=== PATIENT | female | born 1960 | race Caucasian/White ===

== ENCOUNTER → 2024-03-21 07:46 | Outpatient (REF) | payer BC, SELFPAY ==
[2024-03-21 10:26] LABS: ALT (SGPT) 21 U/L (0-35); AST (SGOT) 26 U/L (14-36); Albumin 4.7 g/dl (3.5-5.0); Alkaline Phosphatase 76 U/L (38-126); Blood Urea Nitrogen 15 mg/dl (7-17); Calcium 9.7 mg/dl (8.4-10.2); Carbon Dioxide 23 mmol/L (22-30); Chloride 104 mmol/L (98-107); Glucose 117 mg/dl (70-99); HDL Cholesterol 57 mg/dl; LDL Cholesterol, Calculated 70 mg/dl; Potassium 4.7 mmol/L (3.5-5.1); Sodium 139 mmol/L (135-145); Total Bilirubin 1.2 mg/dl (0.2-1.3); Total Cholesterol 180 mg/dl (50-199); Total Protein 7.6 g/dl (6.3-8.2); Triglyceride 266 mg/dl (10-149); Very Low Density Lipoprotein 53 mg/dl (0-30); eGFR > 60.00
[2024-03-21 10:32] LABS: Free T4 1.29 ng/dl (0.78-2.19)
[2024-03-21 10:46] LABS: TSH 2.28 uIU/ml (0.47-4.68)
[2024-03-21 10:55] LABS: Microalbumin, Random Urine < 0.6 mg/dl (0.6-1.7)
[2024-03-21 11:54] LABS: Glycohemoglobin (HgbA1c) 7.2 % (4.0-5.6)
== END ==
LOC: SDSPAT 07:46
PROVIDERS: ATTENDING PHYSICIAN Internal Medicine Endocrinology, Diabetes & Metabolism; FAMILY PHYSICIAN Internal Medicine Critical Care Medicine
DX: E03.9 Hypothyroidism, unspecified (principal); E11.9 Type 2 diabetes mellitus without complications
CPT/HCPCS: 36415; 80053; 80061; 82043; 82570; 83036; 84439; 84443

== ENCOUNTER → 2024-07-28 17:34 | Outpatient (REF) | payer BC, SELFPAY | LOC: CPAP 17:34 | PROVIDERS: ATTENDING PHYSICIAN Obstetrics & Gynecology | DX: Z01.419 Encounter for gynecological examination (general) (routine) without abnormal findings (principal); Z11.51 Encounter for screening for human papillomavirus (HPV) | CPT/HCPCS: 87624; G0123 ==

== ENCOUNTER → 2024-08-19 07:38 | Outpatient (REF) | payer BC, SELFPAY | LOC: WDC 07:38 | PROVIDERS: ATTENDING PHYSICIAN Obstetrics & Gynecology; FAMILY PHYSICIAN Internal Medicine Critical Care Medicine | DX: Z12.31 Encounter for screening mammogram for malignant neoplasm of breast (principal) | CPT/HCPCS: 77063; 77067 ==

== ENCOUNTER 2025-02-14 21:54 | Emergency (ER) | payer BC, SELFPAY ==
[2025-02-14 21:54] VITALS: BMI 34.8
[2025-02-14 21:55] VITALS: BP 165/90
--- NOTE | 2025-02-14 22:46 | ED.SKININJ ---
HPI-Injury
General
Chief Complaint: Skin Problem
Source: patient
Exam Limitations: none
Time Seen by Provider: 02/14/25 22:42
Nursing documentation reviewed up to this point in time: agreed with
History of Present Illness-Injury
Initial Injury comments:
64-year-old female with A-fib on aspirin only, HTN, HLD, hypothyroid, NIDDM presents for a laceration to the tip of her left middle finger from a mandolin 2-1/2 hours ago and she cannot get it to stop bleeding.
Past History
Past History
ED Past Medical History: Arrthythmia (History of atrial fibrillation, and SVT), HTN, Hypercholesterolemia, NIDDM and Hypothyroidism
ED Past Surgical History: Cardiac (Cardiac ablation), and Other (History of myomectomy, wisdom teeth surgery, Lasik surgery)
Social History
Tobacco: Non-smoker
Personal:
Living: with family
Employment: Employed
Review of Systems
Review of Systems
Allergies reviewed?: Yes
All Other Systems: ROS reviewed and negative except as documented in HPI and ROS
Skin: Reports other (Laceration fingertip)
Phy Exam
Physical Exam
Physical Exam:
PHYSICAL EXAMINATION:
General: no apparent distress, not acutely ill
Neuro: alert and oriented.
Psychiatric: well kept. interactive and cooperative
Musculoskeletal: Moves with ease
Skin: Warm, pink. There is a 4 mm round avulsion of the skin of the tip of the left middle finger that is slowly oozing blood
Course
Vital Signs
Initial and Last Documented VS:
Initial Vital Signs
Temp Pulse Resp BP Pulse Ox
98.3 F 67 18 165/90 98
02/14/25 21:55 02/14/25 21:55 02/14/25 21:55 02/14/25 21:55 02/14/25 21:55
Last Documented Vital Signs
Temp Pulse Resp BP Pulse Ox
98.3 F 67 18 165/90 98
02/14/25 21:55 02/14/25 21:55 02/14/25 21:55 02/14/25 21:55 02/14/25 21:55
MDM/Problems Addressed
MDM/Problems Addressed:
64-year-old female with A-fib on aspirin only, HTN, HLD, hypothyroid, NIDDM presents for a laceration to the tip of her left middle finger from a mandolin 2-1/2 hours ago and she cannot get it to stop bleeding.
The wound was cleansed with saline solution, Gelfoam and nonstick dressing applied, tube gauze applied with good hemostasis.
*Critical Care Note
Total Time (30-74mins, 75-104mins- exclusive of procedures): Not Applicable
ED Attending Note
-
Portions of this chart may have been created with voice recognition software.� Occasional wrong word or��sound alike� substitutions may have occurred due to the inherent limitations of voice recognition software.
Discharge Plan
Departure
Patient Disposition: Home (Routine Discharge)
Date of Disposition: 02/14/25
Time of Disposition: 22:48
Patient with high blood pressure during this ER visit?: No
Condition: Good
Discharge Problem:
Avulsion of skin of finger
Instructions: Wound Care (DC)
Prescriptions:
No Action
fluticasone propion-salmeterol [Advair Diskus] 1 EACH blister with device
1 ea IH BID
aspirin 81 MG tablet,delayed release (DR/EC)
81 mg PO DAILY
multivitamin [Daily Multiple] 1 EACH tablet
1 ea PO DAILY
calcium carbonate [Oyster Shell Calcium 500] 500 MG tablet
500 mg PO BID
fluticasone propionate 1 SPRAY spray,suspension
2 spray intranasal BID
lisinopril 20 MG tablet
20 mg PO DAILY
levothyroxine 125 MCG tablet
125 mcg PO DAILY
rosuvastatin 10 MG tablet
10 mg PO QPM
ondansetron 4 MG tablet,disintegrating
4 mg PO TIDPRN PRN (Reason: nausea/vomiting) Qty: 15 0RF
Referrals:
Ced Wetzel MD [Family Provider] -
Activity Restrictions/Additional Instructions:
As we discussed, change the dressing tomorrow afternoon. Wash the wound gently with soap and water daily, apply antibiotic ointment and Band-Aids. Use the aluminum fingertip splint as needed for protection.
Interventions
Interventions:
*Risk Screen - Suicide Last Done: 02/14/25 21:55
*General Assessment Last Done: 02/14/25 21:55
*Neglect/Abuse Screening Last Done: 02/14/25 22:35
*ED- Fall Risk Assessment Last Done: 02/14/25 21:55
*ED COVID-19 Vaccine History Last Done: 02/14/25 21:55
ED-Skin Assessment Last Done: 02/14/25 22:35
Discharge Date and Time
Print Language: CROATIAN
[2025-02-14] MEDS: ADACEL 0.5 ML IM (23:02)
== END 2025-02-14 23:06 | disposition home or self-care (01) ==
LOC: EMR 21:54
PROVIDERS: EMERGENCY PHYSICIAN Emergency Medicine; FAMILY PHYSICIAN Internal Medicine Critical Care Medicine
DX: S61.213A Laceration without foreign body of left middle finger without damage to nail, initial encounter (principal); W27.4XXA Contact with kitchen utensil, initial encounter; E78.00 Pure hypercholesterolemia, unspecified; I10 Essential (primary) hypertension; E03.9 Hypothyroidism, unspecified; E11.9 Type 2 diabetes mellitus without complications; I48.91 Unspecified atrial fibrillation; Z23 Encounter for immunization
CPT/HCPCS: 90471; 99282; 90715; 99285

== ENCOUNTER → 2025-03-17 07:50 | Outpatient (REF) | payer BC, SELFPAY ==
[2025-03-17 08:33] LABS: % Basophils 0.7 % (0-2); % Eosinophils 3.4 % (0-6); % Immature Granulocytes 0.5 % (0-0.5); % Lymphocytes 25.3 % (20.5-51.1); % Neutrophils 65.1 % (42.2-75.2); Absolute Eosinophils 0.2 10^3/uL (0-0.7); Absolute Lymphocytes 1.5 10^3/uL (1.2-3.4); Absolute Monocytes 0.3 10^3/uL (0.1-0.6); Absolute Neutrophils 3.8 10^3/uL (1.4-6.5); Hematocrit 35.7 % (37.0-47.0); Mean Corp Hgb Conc. 33.6 g/dL (33.0-37.0); Mean Corpuscular Hgb 27.5 pg (27.0-31.0); Mean Corpuscular Volume 81.9 fL (81.0-99.0); Mean Platelet Volume 9.4 fL (7.4-10.4); Nucleated Red Blood Cells % 0 %; Platelet Count 236 10^3/uL (130-400); Red Blood Cell Count 4.36 10^6/uL (4.20-5.40); Red Cell Dist. Width 14.7 % (11.5-14.5); White Blood Cell Count 5.9 10^3/uL (4.8-10.8)
[2025-03-17 08:53] LABS: ALT (SGPT) 19 U/L (0-35); AST (SGOT) 22 U/L (14-36); Albumin 4.5 g/dl (3.5-5.0); Alkaline Phosphatase 70 U/L (38-126); Blood Urea Nitrogen 17 mg/dl (7-17); Calcium 9.4 mg/dl (8.4-10.2); Carbon Dioxide 22 mmol/L (22-30); Chloride 109 mmol/L (98-107); Direct Bilirubin 0.1 mg/dl (0.0-0.4); Glucose 127 mg/dl (70-99); HDL Cholesterol 55 mg/dl; LDL Cholesterol, Calculated 57 mg/dl; Phosphorus 4.1 mg/dl (2.5-4.5); Potassium 4.2 mmol/L (3.5-5.1); Sodium 143 mmol/L (135-145); Total Bilirubin 1.4 mg/dl (0.2-1.3); Total Cholesterol 172 mg/dl (50-199); Triglyceride 303 mg/dl (10-149); Very Low Density Lipoprotein 60 mg/dl (0-30); eGFR > 60.00
[2025-03-17 09:11] LABS: Free T4 1.32 ng/dl (0.78-2.19)
[2025-03-17 09:22] LABS: Microalbumin, Random Urine 3.8 mg/dl (0.6-1.7); Microalbumin/creatinine Ratio 24.9 mg/g
[2025-03-17 09:24] LABS: TSH 2.61 uIU/ml (0.47-4.68)
== END ==
LOC: REG 07:50
PROVIDERS: ATTENDING PHYSICIAN Internal Medicine Endocrinology, Diabetes & Metabolism; FAMILY PHYSICIAN Internal Medicine Critical Care Medicine
DX: E78.1 Pure hyperglyceridemia (principal); E03.9 Hypothyroidism, unspecified; I10 Essential (primary) hypertension; E78.5 Hyperlipidemia, unspecified; E11.9 Type 2 diabetes mellitus without complications; R79.89 Other specified abnormal findings of blood chemistry
CPT/HCPCS: 36415; 80053; 80061; 82043; 82248; 82570; 83036; 84100; 84439; 84443; 85025

== ENCOUNTER 2025-08-24 09:23 | Emergency (ER) | payer BC, SELFPAY ==
[2025-08-24 09:30] VITALS: BP 193/112
[2025-08-24] MEDS: ANTIVERT 25 MG PO (10:05)
[2025-08-24] MEDS: ZOFRAN 4 MG IV (10:06)
[2025-08-24] MEDS: NSS 500 IV (10:07)
--- NOTE | 2025-08-24 10:34 | ED.GENMED ---
History of Present Illness
General
Chief Complaint: Dizziness
Time Seen by Provider: 08/24/25 10:05
History of Present Illness
History of Present Illness:
64-year-old female with history of A-fib, hypertension, and hyperlipidemia presents to the emergency department for evaluation of abrupt onset of vertigo that started approximately 20 minutes while she was working. She has a history of vertigo and
states this feels similar. She is unable to open her eyes due to the sensation of room spinning. She did vomit x 1. No headaches or diplopia noted. Denies any weakness or numbness to the extremities
Past History
Past History
ED Past Medical History: Arrthythmia (History of atrial fibrillation, and SVT), HTN, Hypercholesterolemia, NIDDM and Hypothyroidism
ED Past Surgical History: Cardiac (Cardiac ablation), and Other (History of myomectomy, wisdom teeth surgery, Lasik surgery)
Social History
Tobacco: Non-smoker
Personal:
Living: with family
Employment: Employed
Review of Systems
Review of Systems
Allergies reviewed?: Yes
All Other Systems: ROS reviewed and negative except as documented in HPI and ROS
Phy Exam
Physical Exam
Physical Exam:
GEN: Well appearing, NAD, WDWN
HEENT: Oral mucosa moist, no scleral icterus
Cardiac: Regular rate
Lung: No respiratory distress, no tachypnea
MSK: No gross deformity or injuries
Skin: Good color, no pallor or jaundice, no rashes
Neuro: AO x3, cranial nerves II to XII grossly intact, no visible nystagmus moves all extremities freely, bilateral upper and lower extremity strength is 5 out of 5 in all chavez
Psych: Calm, cooperative
Course
Orders/Labs/Results
Orders:
Orders
08/24/25 09:57
Meclizine [Antivert] 25 mg .ROUTE .STK-MED ONE
Ondansetron Injectable [Zofran] 4 mg .ROUTE .STK-MED ONE
08/24/25 10:04
Ondansetron Injectable [Zofran] 4 mg IV NOW STA
08/24/25 10:05
Meclizine [Antivert] 25 mg PO NOW STA
08/24/25 10:06
0.9% Sodium Chloride 500 ml [Nss] 500 ml IV BOLUS
08/24/25 10:32
diazePAM [Valium Injection] 2 mg IV NOW STA
08/24/25 11:28
Basic Metabolic Panel Urgent
Complete Blood Count/No Diff Urgent
Abnormal Lab Results
08/24/25
11:28
Hgb 11.8 L g/dL
(12.0-16.0)
MCHC 31.7 L g/dL
(33.0-37.0)
RDW 14.8 H %
(11.5-14.5)
Chloride 108 H mmol/L
(98-107)
Carbon Dioxide 21 L mmol/L
(22-30)
Glucose 111 H mg/dl
(70-99)
Calcium 8.3 L mg/dl
(8.4-10.2)
08/24/25 11:28
08/24/25 11:28
Vital Signs
Initial and Last Documented VS:
Initial Vital Signs
Temp Pulse Resp BP Pulse Ox
97.8 F 98 20 193/112 94
08/24/25 09:30 08/24/25 09:30 08/24/25 09:30 08/24/25 09:30 08/24/25 09:30
Last Documented Vital Signs
Temp Pulse Resp BP Pulse Ox
97.8 F 88 20 158/70 96
08/24/25 09:30 08/24/25 12:44 08/24/25 12:44 08/24/25 12:44 08/24/25 12:44
MDM/Problems Addressed
MDM/Problems Addressed:
Patient treated initially with oral meclizine and ondansetron and subsequently with IV diazepam with resolution of symptoms. I was unable to provoke any nystagmus on exam however she reported severe positional vertigo suggesting peripheral
etiology. No other neurologic deficits is reassuring against central lesion. Do not see indication for CT of the head at this juncture given lack of headache and rapid resolution with IV medications. Discussed supportive care
*Pulse Oximetry
SaO2: 94
Oxygen Mode of Delivery: Room air
Patient hypoxic: no
*Critical Care Note
Total Time (30-74mins, 75-104mins- exclusive of procedures): Not Applicable
ED Attending Note
-
Portions of this chart may have been created with voice recognition software.� Occasional wrong word or��sound alike� substitutions may have occurred due to the inherent limitations of voice recognition software.
Discharge Plan
Departure
Patient Disposition: Home (Routine Discharge)
Date of Disposition: 08/24/25
Time of Disposition: 12:35
Patient with high blood pressure during this ER visit?: Yes
Discharge Problem:
Vertigo
Instructions: Vertigo (a Type of Dizziness) (DC)
Prescriptions:
New
diazepam [Valium] 5 mg tablet
5 mg PO TID PRN (Reason: dizziness) Qty: 10 0RF
No Action
fluticasone propion-salmeterol [Advair Diskus] 1 EACH blister with device
1 ea IH BID
aspirin 81 MG tablet,delayed release (DR/EC)
81 mg PO DAILY
multivitamin [Daily Multiple] 1 EACH tablet
1 ea PO DAILY
calcium carbonate [Oyster Shell Calcium 500] 500 MG tablet
500 mg PO BID
fluticasone propionate 1 SPRAY spray,suspension
2 spray intranasal BID
lisinopril 20 MG tablet
20 mg PO DAILY
levothyroxine 125 MCG tablet
125 mcg PO DAILY
rosuvastatin 10 MG tablet
10 mg PO QPM
ondansetron 4 MG tablet,disintegrating
4 mg PO TIDPRN PRN (Reason: nausea/vomiting) Qty: 15 0RF
Referrals:
Ced Wetzel MD [Family Provider, Pulmonary Medicine]
Interventions
Interventions:
*Risk Screen - Suicide Last Done: 08/24/25 09:30
*General Assessment Last Done: 08/24/25 09:30
*Neglect/Abuse Screening Last Done: 08/24/25 09:30
*Nursing Disposition Last Done: 08/24/25 12:59
ED- Cardiac Assessment Last Done: 08/24/25 11:11
ED- Neurological Assessment Last Done: 08/24/25 11:11
Discharge Date and Time
Print Language: SWAZI
[2025-08-24] MEDS: VALIUM INJECTION 2 MG IV (11:28)
[2025-08-24 11:49] LABS: Hematocrit 37.2 % (37.0-47.0); Hemoglobin 11.8 g/dL (12.0-16.0); Mean Corp Hgb Conc. 31.7 g/dL (33.0-37.0); Mean Corpuscular Volume 86.5 fL (81.0-99.0); Platelet Count 209 10^3/uL (130-400); Red Cell Dist. Width 14.8 % (11.5-14.5)
[2025-08-24 12:12] LABS: Blood Urea Nitrogen 15 mg/dl (7-17); Calcium 8.3 mg/dl (8.4-10.2); Carbon Dioxide 21 mmol/L (22-30); Chloride 108 mmol/L (98-107); Glucose 111 mg/dl (70-99); Sodium 136 mmol/L (135-145); eGFR > 60.00
[2025-08-24 12:44] VITALS: BP 158/70
== END 2025-08-24 14:12 | disposition home or self-care (01) ==
LOC: EMR 09:23
PROVIDERS: Physician Assistant; EMERGENCY PHYSICIAN Student in an Organized Health Care Education/Training Program; FAMILY PHYSICIAN Internal Medicine Critical Care Medicine
DX: R42 Dizziness and giddiness (principal); I48.91 Unspecified atrial fibrillation; I10 Essential (primary) hypertension; E11.9 Type 2 diabetes mellitus without complications; E03.9 Hypothyroidism, unspecified; E78.00 Pure hypercholesterolemia, unspecified
CPT/HCPCS: 99283; 96374; 96375; 96361; 80048; 85027